=== PATIENT | female | born 1990 | race Caucasian/White ===

== ENCOUNTER → 2021-10-20 | Outpatient (CLI) | payer OTHER, SELFPAY ==
[2021-10-28 06:08] LABS: Almond <0.10 kU/L (Class 0); Apple <0.10 kU/L (Class 0); Banana 0.11 kU/L (Class 0/I); Beef <0.10 kU/L (Class 0); Carrot <0.10 kU/L (Class 0); Cashew <0.10 kU/L (Class 0); Chicken <0.10 kU/L (Class 0); Dog Epithelia <0.10 kU/L (Class 0); Egg, White <0.10 kU/L (Class 0); Egg, Whole <0.10 kU/L (Class 0); Egg, Yolk <0.10 kU/L (Class 0); Garlic <0.10 kU/L (Class 0); Gluten <0.10 kU/L (Class 0); Milk (Cow) <0.10 kU/L (Class 0); Oat <0.10 kU/L (Class 0); Onion <0.10 kU/L (Class 0); Pea <0.10 kU/L (Class 0); Pecan <0.10 kU/L (Class 0); Pork <0.10 kU/L (Class 0); Potato, White <0.10 kU/L (Class 0); Rice <0.10 kU/L (Class 0); SESAME SEED <0.10 kU/L (Class 0); Salmon <0.10 kU/L (Class 0); Shrimp 0.12 kU/L (Class 0/I); Soybean <0.10 kU/L (Class 0); Strawberry <0.10 kU/L (Class 0); Tomato <0.10 kU/L (Class 0); Tuna <0.10 kU/L (Class 0); Walnut, (Food) <0.10 kU/L (Class 0); Wheat 0.14 kU/L (Class 0/I); Yeast <0.10 kU/L (Class 0)
[2021-10-28 13:48] LABS: Peanut <0.10 kU/L (Class 0); Turkey <0.10 kU/L (Class 0)
== END | disposition home or self-care (01) ==
PROVIDERS: PCP Family Medicine; Visit Provider Otolaryngology Otolaryngology/Facial Plastic Surgery
DX: L50.9 Urticaria, unspecified (principal)
CPT/HCPCS: 36415; 86003

== ENCOUNTER 2022-03-09 19:23 | Emergency (ER) | payer OTHER, SELFPAY ==
[2022-03-09 19:24] VITALS: BP 124/42; PULSE 82; RESP 18; TEMP 36.6; O2SAT 100; BMI 24.5
--- NOTE | 2022-03-09 20:01 | EX.ED.GENINJ ---
HPI History of Present Illness Chief Complaint: Nausea/Vomiting Narrative Narrative: 31-year-old female presenting with left arm pain. She states she had an IV in the left forearm for several days while at home. Patient states this was taken out she developed an area of erythema around it. It is tender to palpation. She called the nurse on-call and they told her to go to the nearest emergency room to rule out a DVT. Patient is currently at about 16 weeks. No history of DVT/PE. She is not having chest pain or shortness of breath. [facility] Medical History Hyperemesis arising during Allergy/AdvReac Type Severity Reaction Status Date / Time No Known Allergies Allergy Verified 03/09/22 19:26 ROS ROS ED Constitutional Constitutional ED: Denies chills or fever(s) Eyes Eyes: Denies change in vision ENT ENT ED: Denies rhinorrhea or sore throat Cardiovascular Cardiovascular: Denies chest pain or palpitations Respiratory/Chest Respiratory/Chest: Denies cough or dyspnea Gastrointestinal Gastrointestinal: Denies abdominal pain or constipation Genitourinary Genitourinary ED: Denies dysuria or hematuria Musculoskeletal Musculoskeletal: Denies arthralgias or back pain Integumentary Reports other Details: Erythema and swelling to the left foot Neurologic Neurologic: Denies headache(s) Psychiatric Psychiatric: Denies anxiety or depression EXAM Physical Exam Const Vital Signs: 03/09/22 19:24 Temperature 97.9 F Temperature Source Temporal Pulse Rate 82 Respiratory Rate 18 Blood Pressure 124/42 H Blood Pressure Mean 69 Pulse Ox 100 Oxygen Delivery Method Room Air Positive well nourished General Appearance ED: NAD HEENT atraumatic Eyes PERRL and EOMs intact bilaterally Resp normal respiratory effort Cardio regular rhythm Rate: regular rate Extremity Extremity Narrative: 3 to 4 cm area of erythema overlying the left volar forearm. When palpated it is somewhat hard centrally. No fluctuance. No obvious cellulitis. Neuro oriented x3 Sensorium / Orientation: alert Psych mental status grossly normal and thought process normal Skin Skin Narrative: As documented above MDM MDM MDM Narrative Medical decision making narrative: 31-year-old female presenting with forearm pain. Her exam is most consistent with a superficial thrombophlebitis. Given the time of the evening I do not have anybody that can ultrasound this but I have a low suspicion for DVT. Patient has normal vital signs. She is not complaining of chest pain or shortness of breath. She does have nausea but she has a Zofran pump. Patient currently 16 weeks . I counseled her that we can get an ultrasound ordered for her tomorrow as an outpatient follow-up and she was amenable to this. Patient will be discharged in stable condition. Impression: 1. Superficial thrombophlebitis Lab Data Attestation: I reviewed the patient's lab results. Discharge Plan Triage Chief Complaint: Nausea/Vomiting ED Provider: Rolando Medrano Dx/Rx/DC Orders Instructions: ED Thrombophlebitis, Superficial Other Ambulatory Orders: Venous Duplex US, Unilateral (Stat) Facility: [facility] - Location: [facility] Ordered By: Dr. Rolando Medrano Primary Care Provider: Rigo Patricio Referrals: Rigo Patricio MD [Primary Care Provider] - Disposition Disposition: Home, Self Care
== END 2022-03-09 20:15 | disposition home or self-care (01) ==
LOC: ED 20:04
PROVIDERS: Emergency Provider Student in an Organized Health Care Education/Training Program; PCP Family Medicine; Visit Provider Student in an Organized Health Care Education/Training Program
DX: O22.22 Superficial thrombophlebitis in pregnancy, second trimester (principal); I80.8 Phlebitis and thrombophlebitis of other sites; Z3A.16 16 weeks gestation of pregnancy
CPT/HCPCS: 99283

== ENCOUNTER → 2022-03-10 | Outpatient (CLI) | payer OTHER, SELFPAY ==
--- NOTE | 2022-03-10 12:28 | VDUE_ITS ---
Reason For Study: LUE pain Right Proximal Left Proximal Right subclavian vein is spontaneous, widely Left jugular vein is spontaneous, widely patent, phasic, with no intraluminal patent, phasic, with no intraluminal echogenicity noted. echogenicity noted. Left subclavian vein is spontaneous, widely patent, phasic, with no intraluminal echogenicity noted. Left Arm Left axillary vein is spontaneous, patent, phasic, competent, compressible and demonstrates augmentation. Left brachial vein is compressible. Cephalic V is compressible at wrist and proximal forearm to shoulder. Cephalic V is NON-COMPRESSIBLE just superior to wrist through mid forearm. PT has an IV in that area recently. Left basilic vein is compressible. Left Lower Arm Left radial vein is compressible. Left ulnar vein is compressible. Patient Safety Dr. Rigo Patricio's office notified by phone and FAX to call patient today. Will confirm with office notification of results. VL/Venous Duplex US, Unilateral Interpretation Summary No evidence for acute deep venous thrombosis[left] upper extremity with patent and compressible cephalic and basilic veins. Superficial thrombophlebitis left forearm cephalic vein. Clinical report of a recent IV Normal flow patterns right subclavian vein Ordering Physician: Rolando Medrano Referring Physician: Rigo Patricio Performed By: Lizz Cao, SANDY, RVT ???
== END | disposition home or self-care (01) ==
LOC: CVS 12:27
PROVIDERS: PCP Family Medicine; Referring Provider Student in an Organized Health Care Education/Training Program; Visit Provider Student in an Organized Health Care Education/Training Program
DX: M79.602 Pain in left arm (principal)
CPT/HCPCS: 93971